=== PATIENT | female | born 1935 | race Caucasian/White ===

== ENCOUNTER → 2017-01-19 | Outpatient (CLI) | payer MEDICARE ==
[2017-01-19 15:46] LABS: HEMOGLOBIN 12.6 g/dL (11.7-16.4)
[2017-01-19 15:56] LABS: BLOOD UREA NITROGEN 17 mg/dL (7-18)
[2017-01-19 15:59] LABS: ASPARTATE AMINO TRANSFERASE 17 U/L (15-37)
== END | disposition home or self-care (01) ==
LOC: CFH 13:14
PROVIDERS: ATTEND Genetic Counselor, MS
DX: I10 Essential (primary) hypertension (principal); E78.5 Hyperlipidemia, unspecified; E87.1 Hypo-osmolality and hyponatremia; F41.1 Generalized anxiety disorder
CPT/HCPCS: 36415; 80053; 80061; 85025

== ENCOUNTER 2017-01-27 18:23 | Inpatient (IN) | payer MEDICARE ==
[~2017-01-27] VITALS: Ht 149.9 cm; Wt 56.8 kg
[2017-01-27] MEDS ORDERED: SODIUM CHLORIDE 0.9% 1,000 ML IV ONE (18:36)
[2017-01-27] MEDS ORDERED: NAPR220C2 PO (18:44)
[2017-01-27] MEDS ORDERED: CLOB15CR19 TP (18:44)
[2017-01-27] MEDS ORDERED: FEXO1TAB25 PO (18:45)
[2017-01-27] MEDS ORDERED: FEXO180T5 PO (18:45)
[2017-01-27] MEDS ORDERED: AMLO10TA2 PO (18:46)
[2017-01-27] MEDS ORDERED: SERT25TA3 PO (18:47)
[2017-01-27] MEDS ORDERED: LOSA1TAB18 PO (18:47)
[2017-01-27] MEDS ORDERED: SODIUM CHLORIDE FLUSH 10ML SYR IVF ONE (19:00)
[2017-01-27 19:14] LABS: HEMOGLOBIN 12.9 g/dL (11.7-16.4)
[2017-01-27 19:17] LABS: BLOOD UREA NITROGEN 19 mg/dL (7-18)
[2017-01-27 19:24] LABS: ASPARTATE AMINO TRANSFERASE 13 U/L (15-37)
[2017-01-27 19:25] LABS: IS PT STATUS REG ER OR PRE ER? YES
[2017-01-27] MEDS ORDERED: GUAIFENESIN/DM 200-20MG, 10ML UDC PO PRN (21:00)
[2017-01-27] MEDS ORDERED: POLYETHYLENE GLYCOL 17 GM PACKET PO PRN (21:00)
[2017-01-27] MEDS ORDERED: ACETAMINOPHEN 325 MG TABLET PO PRN (21:00)
[2017-01-27] MEDS ORDERED: BISACODYL 10 MG SUPP PR PRN (21:00)
[2017-01-27] MEDS ORDERED: POTASSIUM CHLORIDE 20 MEQ TAB.ER.PRT PO ONE (21:00)
[2017-01-27] MEDS ORDERED: FUROSEMIDE 20 MG/2 ML IV ONE (21:00)
[2017-01-27] MEDS ORDERED: ONDANSETRON 2MG/ML, 2ML IVP PRN (21:00)
[2017-01-27] MEDS ORDERED: DOCUSATE 100 MG CAPSULE PO PRN (21:00)
[2017-01-27] MEDS ORDERED: OMNIPAQUE 350 MG/ML, 100ML BOTTLE ONE (21:11)
[2017-01-27 21:32] VITALS: BP 143/78
[2017-01-27] MEDS: SODIUM CHLORIDE FLUSH 10ML SYR IVF SCH (23:17)
[2017-01-27] MEDS: ENOXAPARIN 30 MG/0.3 ML SQ SCH (23:17)
[2017-01-28 02:57] VITALS: BP 108/61
[2017-01-28 05:18] LABS: BLOOD UREA NITROGEN 18 mg/dL (7-18)
[2017-01-28 05:23] LABS: ASPARTATE AMINO TRANSFERASE 13 U/L (15-37)
[2017-01-28 07:29] VITALS: BP 109/62
[2017-01-28] MEDS: FUROSEMIDE 20 MG/2 ML IV SCH (08:27)
[2017-01-28] MEDS: SODIUM CHLORIDE FLUSH 10ML SYR IVF SCH ×2 (08:27→22:43)
[2017-01-28] MEDS: LOSARTAN 50MG TABLET PO SCH (08:28)
[2017-01-28] MEDS: POTASSIUM CHLORIDE 20 MEQ PACKET PO SCH (08:28)
[2017-01-28] MEDS: AMLODIPINE 5 MG TABLET PO SCH (08:29)
[2017-01-28] MEDS: SERTRALINE 50MG TABLET PO SCH (08:29)
[2017-01-28] MEDS: CETIRIZINE 10 MG TABLET PO SCH (08:29)
[2017-01-28 14:31] VITALS: BP 101/61
[2017-01-28] MEDS ORDERED: CHOLECALCIFEROL 400 UNITS TABLET PO SCH (15:30)
[2017-01-28] MEDS ORDERED: ERGOCALCIFEROL 50,000 UNIT CAPSULE PO SCH (15:30)
[2017-01-28 20:20] VITALS: BP 103/57
[2017-01-28] MEDS: ENOXAPARIN 30 MG/0.3 ML SQ SCH (22:43)
[2017-01-29 02:03] VITALS: BP 99/54
[2017-01-29 07:16] LABS: HEMOGLOBIN 13.1 g/dL (11.7-16.4)
[2017-01-29 07:28] LABS: BLOOD UREA NITROGEN 18 mg/dL (7-18)
[2017-01-29 07:50] VITALS: BP 106/65
[2017-01-29] MEDS: POTASSIUM CHLORIDE 20 MEQ PACKET PO SCH (08:13)
[2017-01-29] MEDS: FUROSEMIDE 20 MG/2 ML IV SCH (08:14)
[2017-01-29] MEDS: CETIRIZINE 10 MG TABLET PO SCH (08:14)
[2017-01-29] MEDS: AMLODIPINE 5 MG TABLET PO SCH (08:14)
[2017-01-29] MEDS: LOSARTAN 50MG TABLET PO SCH (08:14)
[2017-01-29] MEDS: SERTRALINE 50MG TABLET PO SCH (08:14)
[2017-01-29] MEDS: SODIUM CHLORIDE FLUSH 10ML SYR IVF SCH (08:16)
[2017-01-29] MEDS ORDERED: CALCIUM CARBONATE 500 MG TAB.CHEW PO SCH (11:00)
[2017-01-29 13:44] VITALS: BP 91/52
[2017-01-29] MEDS ORDERED: ERGO500017 PO (14:22)
[2017-01-29] MEDS ORDERED: CALC200T24 PO (14:22)
[2017-01-29] MEDS ORDERED: LOSA50TA2 PO (14:22)
[2017-01-29] MEDS ORDERED: ACET325T14 PO (14:22)
[2017-01-29] MEDS ORDERED: AMLO10TA2 PO (15:14)
[2017-01-30] MEDS ORDERED: FUROSEMIDE 20 MG TABLET PO SCH (09:00)
== END 2017-01-29 17:00 | disposition home or self-care (01) | DRG 291 ==
LOC: ED 19:19 → EDIP 20:10 → SUATTDRO 20:14 → 4WST 21:18 → DCLOUNGE 01-29 15:55
PROC: 0T9B70Z Drainage of Bladder with Drainage Device, Via Natural or Artificial Opening (ICD-10-PCS; principal; 2017-01-27)
DX: I13.0 Hypertensive heart and chronic kidney disease with heart failure and stage 1 through stage 4 chronic kidney disease, or unspecified chronic kidney disease (principal); I50.33 Acute on chronic diastolic (congestive) heart failure; N17.0 Acute kidney failure with tubular necrosis; E87.1 Hypo-osmolality and hyponatremia; R09.02 Hypoxemia; D69.6 Thrombocytopenia, unspecified; J30.9 Allergic rhinitis, unspecified; F32.9 Major depressive disorder, single episode, unspecified; D75.89 Other specified diseases of blood and blood-forming organs; I34.0 Nonrheumatic mitral (valve) insufficiency; I34.1 Nonrheumatic mitral (valve) prolapse; E55.9 Vitamin D deficiency, unspecified; N18.9 Chronic kidney disease, unspecified; Z90.5 Acquired absence of kidney; Z85.528 Personal history of other malignant neoplasm of kidney; Z90.710 Acquired absence of both cervix and uterus; Z90.49 Acquired absence of other specified parts of digestive tract; T50.2X5A Adverse effect of carbonic-anhydrase inhibitors, benzothiadiazides and other diuretics, initial encounter
CPT/HCPCS: 36415; 71010; 71275; 80048; 80053; 81003; 82306; 82436; 82533; 82570; 83735; 83880; 83930; 83935; 84100; 84133; 84300; 84436; 84439; 84443; 84481; 84484; 85025; 85379; 93005; 93306; 93922; 96374; J1650; Q9967; J1940; J7030

== ENCOUNTER → 2017-02-02 | Outpatient (CLI) | payer MEDICARE ==
[~2017-02-02] MED LIST: ACET325T14 PO; AMLO10TA2 PO; CALC200T24 PO; CLOB15CR19 TP; ERGO500017 PO; FEXO180T5 PO; FEXO1TAB25 PO; LOSA1TAB18 PO; LOSA50TA2 PO; NAPR220C2 PO; SERT25TA3 PO
[2017-02-02 12:55] LABS: HEMOGLOBIN 13.4 g/dL (11.7-16.4)
[2017-02-02 12:56] LABS: BLOOD UREA NITROGEN 15 mg/dL (7-18)
== END | disposition home or self-care (01) ==
LOC: CFH 11:24
PROVIDERS: ATTEND Physician Assistant
DX: N19 Unspecified kidney failure (principal); D47.3 Essential (hemorrhagic) thrombocythemia
CPT/HCPCS: 36415; 80048; 85025

== ENCOUNTER → 2017-04-14 | Outpatient (CLI) | payer MEDICARE ==
[2017-04-14 15:53] LABS: BLOOD UREA NITROGEN 18 mg/dL (7-18)
== END | disposition home or self-care (01) ==
LOC: LAB 14:53
PROVIDERS: ATTEND Internal Medicine Cardiovascular Disease
DX: I13.0 Hypertensive heart and chronic kidney disease with heart failure and stage 1 through stage 4 chronic kidney disease, or unspecified chronic kidney disease (principal); I50.32 Chronic diastolic (congestive) heart failure; N18.9 Chronic kidney disease, unspecified; R42 Dizziness and giddiness
CPT/HCPCS: 36415; 80048; 83735; 84436; 84481

== ENCOUNTER → 2017-06-12 | Outpatient (CLI) | payer MEDICARE ==
[~2017-06-12] MED LIST changes: +REGADENOSON 0.4 MG/5 ML SYRINGE ONE
== END | disposition home or self-care (01) ==
LOC: CFH 11:52
PROVIDERS: ATTEND Physician Assistant
DX: R06.02 Shortness of breath (principal); I10 Essential (primary) hypertension; R42 Dizziness and giddiness
CPT/HCPCS: 78452; 93017; A9502; J2785

== ENCOUNTER → 2017-07-28 | Outpatient (CLI) | payer MEDICARE ==
[~2017-07-28] MED LIST changes: +FEXO180T15 PO; -FEXO180T5 PO; -REGADENOSON 0.4 MG/5 ML SYRINGE ONE
== END | disposition home or self-care (01) ==
LOC: CFH 13:42
PROVIDERS: ATTEND Nurse Practitioner Family
DX: Z12.31 Encounter for screening mammogram for malignant neoplasm of breast (principal); M85.88 Other specified disorders of bone density and structure, other site
CPT/HCPCS: 77080; G0202

== ENCOUNTER → 2017-08-14 | Outpatient (CLI) | payer MEDICARE | END | disposition home or self-care (01) | LOC: CFH 12:59 | PROVIDERS: ATTEND Nurse Practitioner Family | DX: R92.2 Inconclusive mammogram (principal) | CPT/HCPCS: 76641; G0206 ==

== ENCOUNTER → 2018-02-03 | Outpatient (CLI) | payer MEDICARE ==
[~2018-02-03] MED LIST changes: -LOSA1TAB18 PO; +LOSA1TAB25 PO
== END | disposition home or self-care (01) ==
LOC: CFH 13:30
PROVIDERS: ATTEND Genetic Counselor, MS
DX: R92.2 Inconclusive mammogram (principal)
CPT/HCPCS: 77065

== ENCOUNTER → 2018-08-25 | Outpatient (CLI) | payer MEDICARE ==
[~2018-08-25] MED LIST changes: -AMLO10TA2 PO; +AMLO10TA6 PO
== END | disposition home or self-care (01) ==
LOC: CFH 12:20
PROVIDERS: ATTEND Genetic Counselor, MS
DX: R92.2 Inconclusive mammogram (principal)
CPT/HCPCS: 76642; 77066

== ENCOUNTER → 2019-11-30 | Outpatient (CLI) | payer MEDICARE ==
[~2019-11-30] MED LIST changes: -AMLO10TA6 PO; +AMLO10TA8 PO
== END | disposition home or self-care (01) ==
LOC: CFH 13:57
PROVIDERS: ATTEND Nurse Practitioner Family
DX: R92.2 Inconclusive mammogram (principal)
CPT/HCPCS: 76642; 77066; G0279

== ENCOUNTER → 2020-11-05 | Outpatient (CLI) | payer MEDICARE ==
[~2020-11-05] MED LIST changes: +AMLO-211 PO; -AMLO10TA8 PO
== END | disposition home or self-care (01) ==
LOC: CVU 13:35
PROVIDERS: ATTEND Internal Medicine Cardiovascular Disease
DX: I08.1 Rheumatic disorders of both mitral and tricuspid valves (principal); I11.0 Hypertensive heart disease with heart failure; I50.32 Chronic diastolic (congestive) heart failure
CPT/HCPCS: 93306; 93356